=== PATIENT | female | born 1970 | race Caucasian/White ===

== ENCOUNTER 2018-03-19 12:21 | Emergency (ER) | payer MEDICARE ==
[2018-03-19] MEDS ORDERED: KETOROLAC TROMETHAMINE 30MG/ML ONE (13:00)
[2018-03-19] MEDS ORDERED: ALPRAZOLAM 1 MG TAB ONE (13:00)
== END 2018-03-19 13:30 | disposition home or self-care (01) ==
LOC: EDH 12:21
DX: M25.551 Pain in right hip (principal); F41.1 Generalized anxiety disorder; F19.230 Other psychoactive substance dependence with withdrawal, uncomplicated; E03.9 Hypothyroidism, unspecified; G35 Multiple sclerosis; Z87.442 Personal history of urinary calculi; Z72.0 Tobacco use; Z88.8 Allergy status to other drugs, medicaments and biological substances; W18.39XA Other fall on same level, initial encounter; Y93.89 Activity, other specified; Y92.098 Other place in other non-institutional residence as the place of occurrence of the external cause; Y99.8 Other external cause status
CPT/HCPCS: 73502; 96372; 99284; J1885

== ENCOUNTER 2019-01-10 17:47 | Emergency (ER) | payer OTHER, MEDICARE ==
[2019-01-10 18:26] LABS: BASOPHILS % (AUTO) 0.4 % (0.0-5.0); EOSINOPHILS % (AUTO) 0.7 % (0.0-8.0); HEMATOCRIT 39.3 % (36-48); LYMPHOCYTES % (AUTO) 26.4 % (21.0-51.0); MEAN CORPUSCULAR HEMOGLOBIN 32.3 pg (27.0-33.0); MEAN CORPUSCULAR HGB CONC 34.2 g/dL (32.0-36.0); MEAN CORPUSCULAR VOLUME 94.3 fL (79-99); MONOCYTES % (AUTO) 10.8 % (3.0-13.0); NEUTROPHILS % (AUTO) 61.7 % (40.0-77.0); PLATELET COUNT (AUTO) 242 K/uL (130-400); RED BLOOD CELL COUNT(AUTO) 4.17 MIL/uL (4.00-5.50); RED CELL DISTRIBUTION WIDTH 13.3 % (11.0-15.5); WHITE BLOOD COUNT (AUTO) 8.9 K/uL (4.8-10.8)
[2019-01-10 18:41] LABS: POTASSIUM 4.4 mmol/L (3.5-5.1)
[2019-01-10] MEDS ORDERED: ASPIRIN 325 MG TABLET ONE ×2 (18:41→18:50)
[2019-01-10 18:43] LABS: INR 0.97 (0.85-1.15); PARTIAL THROMBOPLASTIN TIME 23.3 SEC (26.3-35.5); PROTHROMBIN TIME 10.2 SEC (9.6-11.6)
[2019-01-10 18:45] LABS: BILIRUBIN,TOTAL 0.1 mg/dL (0.2-1.0); TOTAL PROTEIN, SERUM 7.7 g/dL (6.0-8.3)
[2019-01-10] MEDS ORDERED: KETOROLAC TROMETHAMINE 30MG/ML ONE (18:51)
[2019-01-10 18:58] LABS: APPEARANCE,URINE CLOUDY (CLEAR); BILIRUBIN,URINE NEGATIVE (NEGATIVE); COLOR,URINE YELLOW (YELLOW); GLUCOSE, URINE (UA) NEGATIVE (NEGATIVE); KETONES,URINE NEGATIVE (NEGATIVE); LEUKOCYTE ESTERASE ,URINE NEGATIVE (NEGATIVE); NITRATE,URINE POSITIVE (NEGATIVE); OCCULT BLOOD,URINE NEGATIVE (NEGATIVE); PROTEIN,URINE NEGATIVE (NEGATIVE); UROBILINOGEN,URINE 0.2 mg/dL (0.2-1.0)
[2019-01-10 19:06] LABS: AMPHET/METH SCREEN,URINE NEGATIVE (NEGATIVE); BARBITURATE SCREEN, URINE NEGATIVE (NEGATIVE); BENZODIAZEPINES SCREEN,URINE POSITIVE (NEGATIVE); CANNABINOID SCREEN,URINE POSITIVE (NEGATIVE); COCAINE SCREEN,URINE NEGATIVE (NEGATIVE); OPIATE SCREEN,URINE NEGATIVE (NEGATIVE); PHENCYCLIDINE SCREEN,URINE NEGATIVE (NEGATIVE)
[2019-01-10 19:31] LABS: BACTERIA,URINE Moderate /HPF (None Seen); RBC,URINE 0-1 /HPF (0-1); SQUAMOUS EPITHELIAL CELL,UR Few /HPF (0-2); WBC,URINE 0-1 /HPF (0-1)
[2019-01-10 19:50] LABS: SALICYLATE 2.9 mg/dL (2.8-20.0)
[2019-01-10 19:52] LABS: ACETAMINOPHEN < 1 mcg/mL (10-30); ALCOHOL, BLOOD < 3 mg/dL (0-10)
== END 2019-01-10 19:50 | disposition home or self-care (01) ==
LOC: EDH 17:47
DX: M25.511 Pain in right shoulder (principal); F41.9 Anxiety disorder, unspecified; E03.9 Hypothyroidism, unspecified; Z87.442 Personal history of urinary calculi; Z88.1 Allergy status to other antibiotic agents; Z72.0 Tobacco use
CPT/HCPCS: 36415; 71045; 72040; 73030; 80053; 80305; 81001; 82150; 82550; 83690; 84484; 85025; 85610; 85730; 93005; 96374; 99285; G0480 ×2; G0481; J1885

== ENCOUNTER 2019-04-14 13:35 | Emergency (ER) | payer MEDICARE ==
[2019-04-14 14:23] LABS: HCG,QUAL RESULT NEGATIVE (NEGATIVE)
[2019-04-14 14:25] LABS: APPEARANCE,URINE SL CLOUDY (CLEAR); BILIRUBIN,URINE NEGATIVE (NEGATIVE); COLOR,URINE YELLOW (YELLOW); GLUCOSE, URINE (UA) NEGATIVE (NEGATIVE); KETONES,URINE NEGATIVE (NEGATIVE); LEUKOCYTE ESTERASE ,URINE NEGATIVE (NEGATIVE); NITRATE,URINE NEGATIVE (NEGATIVE); OCCULT BLOOD,URINE MODERATE (NEGATIVE); PROTEIN,URINE NEGATIVE (NEGATIVE); UROBILINOGEN,URINE 0.2 mg/dL (0.2-1.0)
[2019-04-14 14:28] LABS: BACTERIA,URINE Many /HPF (None Seen); MUCUS,URINE Moderate LPF (None Seen); SQUAMOUS EPITHELIAL CELL,UR Many /HPF (0-2)
[2019-04-14] MEDS ORDERED: KETOROLAC TROMETHAMINE 30MG/ML ONE (14:45)
[2019-04-14] MEDS ORDERED: ONDANSETRON HCL 4 MG/2 ML VIAL ONE (14:45)
[2019-04-14] MEDS ORDERED: SODIUM CHLORIDE 0.9% 1000ML 1,000 ML IV ONE (14:45)
[2019-04-14 14:55] LABS: BASOPHILS % (AUTO) 0.5 % (0.0-5.0); EOSINOPHILS % (AUTO) 0.8 % (0.0-8.0); LYMPHOCYTES % (AUTO) 25.4 % (21.0-51.0); MEAN CORPUSCULAR HEMOGLOBIN 32.5 pg (27.0-33.0); MEAN CORPUSCULAR HGB CONC 33.5 g/dL (32.0-36.0); MEAN CORPUSCULAR VOLUME 96.9 fL (79-99); MONOCYTES % (AUTO) 6.8 % (3.0-13.0); NEUTROPHILS % (AUTO) 66.5 % (40.0-77.0); NUCLEATED RED BLOOD CELLS 0.1 % (0.0-0.19); PLATELET COUNT (AUTO) 197 K/uL (130-400); RED BLOOD CELL COUNT(AUTO) 3.82 MIL/uL (4.00-5.50); WHITE BLOOD COUNT (AUTO) 8.4 K/uL (4.8-10.8)
[2019-04-14 15:06] LABS: POTASSIUM 4.3 mmol/L (3.5-5.1)
[2019-04-14 15:11] LABS: ALBUMIN 3.6 g/dL (3.5-5.0); BILIRUBIN,TOTAL 0.2 mg/dL (0.2-1.0)
[2019-04-14] MEDS ORDERED: MORPHINE SULFATE 4 MG/1ML SYG ONE (15:44)
[2019-04-14 15:49] LABS: AMPHET/METH SCREEN,URINE NEGATIVE (NEGATIVE); BARBITURATE SCREEN, URINE NEGATIVE (NEGATIVE); BENZODIAZEPINES SCREEN,URINE POSITIVE (NEGATIVE); CANNABINOID SCREEN,URINE POSITIVE (NEGATIVE); COCAINE SCREEN,URINE NEGATIVE (NEGATIVE); OPIATE SCREEN,URINE POSITIVE (NEGATIVE); PHENCYCLIDINE SCREEN,URINE NEGATIVE (NEGATIVE)
[2019-04-14] MEDS ORDERED: IOHEXOL-350 75 ML VIAL IV ONE (16:19)
== END 2019-04-14 17:49 | disposition home or self-care (01) ==
LOC: EDH 13:35
DX: F12.10 Cannabis abuse, uncomplicated (principal); R10.11 Right upper quadrant pain; F41.9 Anxiety disorder, unspecified; E11.9 Type 2 diabetes mellitus without complications; G89.29 Other chronic pain; Z72.0 Tobacco use; Z88.1 Allergy status to other antibiotic agents; Z88.8 Allergy status to other drugs, medicaments and biological substances; Z90.710 Acquired absence of both cervix and uterus; Z87.442 Personal history of urinary calculi
CPT/HCPCS: 36415; 76770; 80053; 80305; 81001; 81025; 83690; 85025; 87088; 96374; 96375; 99285; J1885; J2270; J2405; J7030; Q9967

== ENCOUNTER 2019-08-24 21:01 | Emergency (ER) | payer MEDICARE ==
[2019-08-24] MEDS ORDERED: HYDROCODONE/ACETAMINOPHEN 10/325 MG TAB ONE (21:35)
[2019-08-24] MEDS ORDERED: ONDANSETRON ODT 4 MG TAB ONE (22:42)
== END 2019-08-24 22:52 | disposition home or self-care (01) ==
LOC: EDH 21:01
DX: S00.11XA Contusion of right eyelid and periocular area, initial encounter (principal); F41.9 Anxiety disorder, unspecified; G89.29 Other chronic pain; E11.9 Type 2 diabetes mellitus without complications; Z72.0 Tobacco use; Z88.1 Allergy status to other antibiotic agents; W18.39XA Other fall on same level, initial encounter; Y93.89 Activity, other specified; Y92.89 Other specified places as the place of occurrence of the external cause; Y99.8 Other external cause status
CPT/HCPCS: 70450; 70486

== ENCOUNTER 2019-08-25 00:06 | Emergency (ER) | payer OTHER, MEDICARE ==
[2019-08-25 01:10] LABS: POTASSIUM 3.4 mmol/L (3.5-5.1)
[2019-08-25 01:24] LABS: BASOPHILS % (AUTO) 0.1 % (0.0-5.0); EOSINOPHILS % (AUTO) 0.2 % (0.0-8.0); HEMATOCRIT 37.6 % (36-48); LYMPHOCYTES % (AUTO) 18.6 % (21.0-51.0); MEAN CORPUSCULAR HEMOGLOBIN 31.2 pg (27.0-33.0); MEAN CORPUSCULAR HGB CONC 33.8 g/dL (32.0-36.0); MEAN CORPUSCULAR VOLUME 92.4 fL (79-99); MONOCYTES % (AUTO) 7.3 % (3.0-13.0); NEUTROPHILS % (AUTO) 73.4 % (40.0-77.0); PLATELET COUNT (AUTO) 275 K/uL (130-400); RED BLOOD CELL COUNT(AUTO) 4.07 MIL/uL (4.00-5.50); RED CELL DISTRIBUTION WIDTH 12.3 % (11.0-15.5); WHITE BLOOD COUNT (AUTO) 14.2 K/uL (4.8-10.8)
[2019-08-25] MEDS ORDERED: ONDANSETRON HCL 4 MG/2 ML VIAL ONE (02:11)
[2019-08-25] MEDS ORDERED: KETOROLAC TROMETHAMINE 30MG/ML ONE (02:12)
== END 2019-08-25 04:22 | disposition home or self-care (01) ==
LOC: EDH 00:06
DX: F41.1 Generalized anxiety disorder (principal); E86.9 Volume depletion, unspecified; G89.29 Other chronic pain; E11.9 Type 2 diabetes mellitus without complications; M79.7 Fibromyalgia; Z90.710 Acquired absence of both cervix and uterus; Z88.1 Allergy status to other antibiotic agents
CPT/HCPCS: 36415; 80048; 85025; 96374; 96375; 99281; 99284; J1885; J2405

== ENCOUNTER 2019-08-25 05:35 | Emergency (ER) | payer MEDICARE | END 2019-08-25 07:44 | disposition home or self-care (01) | LOC: EDH 05:35 | DX: F41.1 Generalized anxiety disorder (principal); G89.29 Other chronic pain; E11.9 Type 2 diabetes mellitus without complications; M79.7 Fibromyalgia; Z90.710 Acquired absence of both cervix and uterus; Z72.0 Tobacco use; Z88.1 Allergy status to other antibiotic agents | CPT/HCPCS: 99281 ==

== ENCOUNTER 2022-01-22 11:59 | Emergency (ER) | payer OTHER, MEDICARE ==
[~2022-01-22] VITALS: Ht 160 cm; Wt 74.8 kg
[~2022-01-22 11:59] MED LIST: CEPH500B PO; ONDA4TAB10 PO; TRAM50TA2 PO
[2022-01-22 12:00] VITALS: BP 129/70
[2022-01-22] MEDS ORDERED: LORAZEPAM 1 MG TABLET PO ONE ×2 (12:30→16:30)
[2022-01-22 12:50] LABS: BASOPHILS % (AUTO) 0.2 % (0.0-5.0); EOSINOPHILS % (AUTO) 0.2 % (0.0-8.0); HEMATOCRIT 39.3 % (36-48); LYMPHOCYTES % (AUTO) 20.7 % (21.0-51.0); MEAN CORPUSCULAR HEMOGLOBIN 30.2 pg (27.0-33.0); MEAN CORPUSCULAR HGB CONC 33.3 g/dL (32.0-36.0); MEAN CORPUSCULAR VOLUME 90.6 fL (79-99); MONOCYTES % (AUTO) 4.8 % (3.0-13.0); NEUTROPHILS % (AUTO) 73.6 % (40.0-77.0); PLATELET COUNT (AUTO) 215 K/uL (130-400); RED BLOOD CELL COUNT(AUTO) 4.34 MIL/uL (4.00-5.50); RED CELL DISTRIBUTION WIDTH 13.7 % (11.0-15.5); WHITE BLOOD COUNT (AUTO) 10.7 K/uL (4.8-10.8)
[2022-01-22 12:53] LABS: APPEARANCE,URINE CLEAR (CLEAR); BILIRUBIN,URINE NEGATIVE (NEGATIVE); COLOR,URINE YELLOW (YELLOW); GLUCOSE, URINE (UA) NEGATIVE (NEGATIVE); KETONES,URINE 5 mg/dL (NEGATIVE); LEUKOCYTE ESTERASE ,URINE NEGATIVE (NEGATIVE); NITRATE,URINE NEGATIVE (NEGATIVE); OCCULT BLOOD,URINE NEGATIVE (NEGATIVE); PROTEIN,URINE TRACE mg/dL (NEGATIVE); UROBILINOGEN,URINE 0.2 mg/dL (0.2-1.0)
[2022-01-22 13:02] LABS: AMPHET/METH SCREEN,URINE NEGATIVE (NEGATIVE); BARBITURATE SCREEN, URINE NEGATIVE (NEGATIVE); BENZODIAZEPINES SCREEN,URINE POSITIVE (NEGATIVE); CANNABINOID SCREEN,URINE POSITIVE (NEGATIVE); COCAINE SCREEN,URINE NEGATIVE (NEGATIVE); OPIATE SCREEN,URINE NEGATIVE (NEGATIVE); PHENCYCLIDINE SCREEN,URINE NEGATIVE (NEGATIVE)
[2022-01-22 13:19] LABS: BACTERIA,URINE Rare /HPF (None Seen); MUCUS,URINE Few LPF (None Seen); RBC,URINE None Seen /HPF (0-1); WBC,URINE None Seen /HPF (0-1)
[2022-01-22 13:20] LABS: POTASSIUM 3.7 mmol/L (3.5-5.1); SALICYLATE 3.3 mg/dL (2.8-20.0)
[2022-01-22 13:21] LABS: CREATININE 0.9 mg/dL (0.5-1.5)
[2022-01-22 13:22] LABS: ACETAMINOPHEN < 1 mcg/mL (10-30); ALCOHOL, BLOOD < 3 mg/dL (0-10)
[2022-01-22 14:19] LABS: ALBUMIN 3.8 g/dL (3.5-5.0); TOTAL PROTEIN, SERUM 7.9 g/dL (6.0-8.3)
== END 2022-01-22 16:49 | disposition home or self-care (01) ==
LOC: EDH 11:59
DX: F32.A Depression, unspecified (principal); F41.9 Anxiety disorder, unspecified; I10 Essential (primary) hypertension; M06.9 Rheumatoid arthritis, unspecified; M79.7 Fibromyalgia; Z79.899 Other long term (current) drug therapy; Z88.1 Allergy status to other antibiotic agents; Z90.49 Acquired absence of other specified parts of digestive tract
CPT/HCPCS: 36415; 80053; 80305; 81001; 81025; 85025; 93005; G0481

== ENCOUNTER 2025-03-24 16:20 | Emergency (ER) | payer OTHER, MEDICAID ==
[~2025-03-24] VITALS: Ht 160 cm; Wt 77.1 kg
--- NOTE | 2025-03-24 17:05 | ERN ---
General Chief Complaint: Shoulder Injury/Pain Stated Complaint: SHOULDER PAIN Time Seen by MD: 16:24 Source: patient History of Present Illness Initial Comments Patient is a 54-year-old female coming in complaining of shoulder and back pain. Per patient earlier today she fell down hit herself in the back in his shoulder region. She is able to elevate her left shoulder but has some discomfort. Allergies: Coded Allergies: ciprofloxacin (Unverified Allergy, Unknown, 04/18/24) Home Meds No Active Prescriptions or Reported Meds Past Medical History Past Medical History: Hypertension, Hypothyroid, Other Medical History Other: FIBROMYALGIA Past Surgical History: Cholecystectomy, Other, Surgical History Other: PARATHYROID ROS Dictation CONSTITUTIONAL: No chills, no fever, no weakness, no diaphoresis, no malaise. HEAD/FACE: No signs of trauma. EENT: No eye pain, no blurred vision, no tearing, no double vision, no ear pain, no ear discharge, no nose pain, no nasal congestion, no throat pain, no throat swelling, no mouth pain. RESPIRATORY: No cough, no orthopnea, no SOB, no stridor, no wheezing. CARDIOVASCULAR: No chest pain, no edema, no palpitations, no syncope. GASTROINTESTINAL/ABDOMINAL: No abdominal pain, no constipation, no diarrhea, no nausea, no vomiting. GENITOURINARY: No abnormal discharge, no dysuria, no frequent urination, no hematuria. No complaints of pain in the genitals. MUSCULOSKELETAL: No back pain, no gout, joint pain, no joint swelling, muscle pain, no muscle stiffness, neck pain. INTEGUMENTARY: No change in color, no change in hair/nails, no dryness, no lesion, no lumps, no rash. NEUROLOGICAL/PSYCH: No anxiety, not depressed, no emotional problem, no headache, no numbness, no pre-existing deficit, no history of seizures, no tremors, no weakness. HEMATOLOGIC/LYMPHATIC: Not anemic, no history of blood clots, no apparent bleeding, no bruising, glands not swollen. All Systems Negative, Except as Noted. Physical Exam Physical Exam Dictation VITAL SIGNS: Reviewed. GENERAL APPEARANCE: Alert, oriented x3, no acute distress, obese. HEAD AND FACE: Non-traumatic. EYES: PERRL, pink conjunctivas, eyelid no trauma, anterior chamber clear. EARS: Pinnas intact and no signs of trauma or erythema. Ear canals clear and no discharge. TMs no erythema. NOSE: No discharge, no bleeding. OROPHARYNX: Mouth normal, teeth no caries, tongue pink. Pharynx clear, no erythema. Tonsils no exudates, no abscesses noted. Mucous membrane moist. NECK: Supple, non-tender, no thyromegaly, no masses, no JVD, no bruits. BREAST: Deferred. CHEST: No tenderness, no crepitus, no paradoxical movement, no retractions. LUNGS: Clear, well-ventilated, symmetric, no rales, no wheezing, no rhonchi, no stridor, good breath sounds bilaterally. HEART: Regular rate, regular rhythm, no murmur, no gallops. VASCULAR: No peripheral edema. ABDOMEN: Soft, positive bowel sounds, nondistended, no guarding, nontender, no rebound, no masses no hepatomegaly, no splenomegaly, no Parrish's sign, no hernias. RECTAL: Deferred. GENITAL: Deferred. NEUROLOGICAL: Normal speech, gross motor function intact, gross sensory function intact. MUSCULOSKELETAL: Neck tender, full range of motion, senior back end java developer, full range of motion. EXTREMITIES: Nontender, full range of motion. SKIN: Color pink, dry, no turgor, no rash, no lacerations, no abrasions, no contusions. LYMPHATICS: Deferred. MDM MDM: Differential diagnosis: Rationale: Tests considered and ordered secondary to shared decision making include: Previous outside records reviewed: Old ER visits. Risk of complication and/or morbidity or mortality of patient management: None Medications-Per medication reconciliation Need for hospitalization: Patient does not meet criteria for hospitalization. Need for emergency major/minor surgery: No There are no social concerns with this patient. Prescription drug management Prescriptions will include symptomatic care Patient's prior external medical records from other ER visits were reviewed by me as indicated. Prior testing and results from previous visits were reviewed. Prior tests were taken into account with medical decision making and resource utilization, independent historian/historians were used to obtain complete medical history. I independently interpreted the test that were performed, results were reviewed by me and considered findings on radiology if ordered. Medical management and examination interpretation discussions were had by me with other qualified healthcare professionals as indicated for the patient's care. I Dr. Mcintosh assumed care of the patient that is 6:45 p.m.. On physical exam with the patient. NIH of 0. Does have good strength and range of motion sens ation. No facial droop no issues speaking good ocular tracking no signs of cranial or head injury. No raccoon sign harris sign or no signs of basilar skull fracture. Additionally to palpation on anterior lateral superior and inferior ribs. There are that has no tenderness to palpation. The patient's main pain. That has they paraspinal left upper and scapular. Also paraspinal low lumbar. Patient does not have any cauda equina symptoms. I did see the the read of the x-rays. It has said could be possible rib fracture. That has likely could be old. Or that has degenerative changes. Given the patient is not have any chest pain or shortness of breath she denies any bruising anywhere on her chest. Or anywhere on her upper back. It is very unlikely that she has a rib fracture even if that has rib fracture stable for outpatient management patient's said she wanted some more pain medication I said that has reasonable understand her I did put in narcotic [place]. But we will be stable for outpa tient management. I told her if she has any problems with urination or bowel or any weakness in the legs. Or any shortness of breath to return immediately to the ED. But that has stable for outpatient management no clinical evidence of pneumothorax hemothorax intra-abdominal pain. She denies any abdominal pain again very unlikely that has no abdominal bruising. That has no right upper quadrant or left upper quadrant no clinical evidence that organ laceration stable for outpatient management ED Course Orders Procedure Category Date Status Time Shoulder Comp 2+Vws Lt RAD 03/24/25 Resulted 16:35 Cerv Spine 2-3vws RAD 03/24/25 Resulted 16:35 Orphenadrine Citrate PHA 03/24/25 Complete (Norflex) 17:30 Orphenadrine Citrate PHA 03/24/25 Complete (Norflex) 17:08 Thoracic Spine 3vws RAD 03/24/25 Resulted 17:34 Lumbar Spine 2-3vws RAD 03/24/25 Resulted 17:59 Ketorolac PHA 03/24/25 Complete Tromethamine 30mg/Ml 18:00 Hydrocodone/Apap PHA 03/24/25 Transmitted 5/325 ([place] 5/325mg) 20:00 Current Medications Medications (Trade) Dose Ordered Sig/[place] Route PRN Reason Start Time Stop Time Status Last Admin Dose Admin Ketorolac Tromethamine (toRADol) 30 mg ONCE ONCE IM 03/24/25 18:00 03/24/25 18:02 DC 03/24/25 18:16 Orphenadrine Citrate (Norflex) 60 mg ONCE ONCE IM 03/24/25 17:30 03/24/25 17:31 DC 03/24/25 17:10 Orphenadrine Citrate (Norflex) 60 mg STK-MED ONCE .ROUTE 03/24/25 17:08 03/24/25 17:09 DC Vital Signs Date Time Temp Pulse Resp B/P (MAP) Pulse Ox O2 Delivery O2 Flow Rate FiO2 03/24/25 18:33 97.5 77 18 118/76 97 Room Air* 0 21 03/24/25 16:39 97.5 77 18 106/74 97 Room Air 0 DX & DISP Disposition: Discharge Departure Impression: Primary Impression: Pain Condition: Stable Scripts No Active Prescriptions or Reported Meds Referrals: HOLLY ALFREDO MD (PCP) CYNDI AMAYA MD Mar 24, 2025 17:05 BRIELLE MCINTOSH MD Mar 24, 2025 19:48
[2025-03-24] MEDS: ORPHENADRINE 60MG/2ML IM ONE (17:10)
[2025-03-24] MEDS: ORPHENADRINE 60MG/2ML ONE (17:10)
--- NOTE | 2025-03-24 17:34 | NUR ---
pt removed c-collar.
--- NOTE | 2025-03-24 18:07 | HMCIMG ---
EXAM: CR Cervical spine, 4 View. CLINICAL HISTORY: fall COMPARISON: None provided. FINDINGS: BONES: No visualized fracture DISCS/DEGENERATIVE CHANGES: Straightening cervical lordosis Mild to moderate degenerative changes SOFT TISSUES: No prevertebral soft tissue swelling. The visualized lung apices are clear. IMPRESSION: 1. Straightening cervical lordosis 2. Mild to moderate degenerative changes 3. No visualized fracture /[place]
--- NOTE | 2025-03-24 18:37 | HMCIMG ---
EXAM: CR left Shoulder, 2 View. CLINICAL HISTORY: fall COMPARISON: None provided. FINDINGS: BONES: No fracture JOINTS: No dislocation. The joint spaces are normal. SOFT TISSUES: The soft tissues are unremarkable. MISCELLANEOUS: Calcific tendinosis rotator cuff IMPRESSION: 1. No fracture 2. Calcific tendinosis rotator cuff /[place]
--- NOTE | 2025-03-24 19:03 | HMCIMG ---
EXAM: CR Lumbar Spine, 3 View. CLINICAL HISTORY: fall COMPARISON: None provided. FINDINGS: BONES: No acute fracture or aggressive appearing osseous lesion. ALIGNMENT: Alignment is within normal limits. No significant scoliosis. DISCS / DEGENERATIVE CHANGES: Moderate degenerative changes most evident at L5-S1 SOFT TISSUES: The soft tissues are unremarkable. IMPRESSION: Moderate degenerative changes most evident at L5-S1 /[place]
--- NOTE | 2025-03-24 19:11 | HMCIMG ---
EXAM: CR Thoracic Spine, 2 View. CLINICAL HISTORY: fall COMPARISON: None provided. FINDINGS: Mild thoracic spondylosis evident by anterior osteophytes and syndesmophytes at multiple levels. Mild multilevel degenerative disc disease. Vertebral body heights are maintained without listhesis. There is concern for a right anterior first rib fracture. Recommend CT imaging of the chest for further evaluation. IMPRESSION: 1. Possible right anterior first rib fracture. CT imaging of the chest recommended for further evaluation. 2. No acute thoracic spine findings. /[place]
[2025-03-24] MEDS: HYDROcodone/APAP 5/325 1 TAB TABLET PO ONE (20:04)
[2025-03-24 20:09] VITALS: BP 120/79; PULSE 78; RESP 17; TEMP 98.5; O2SAT 98
== END 2025-03-24 20:10 | disposition home or self-care (01) ==
LOC: EDH 16:20
DX: M54.9 Dorsalgia, unspecified (principal); M25.512 Pain in left shoulder; E03.8 Other specified hypothyroidism; I10 Essential (primary) hypertension; M79.7 Fibromyalgia; Z88.1 Allergy status to other antibiotic agents; Z90.49 Acquired absence of other specified parts of digestive tract; W18.39XA Other fall on same level, initial encounter; Y93.89 Activity, other specified; Y92.89 Other specified places as the place of occurrence of the external cause; Y99.8 Other external cause status
CPT/HCPCS: 99284; 72040; 72100; 73030; 72072; 96372 ×2; J1885; J2360